=== PATIENT | female | born 1940 | race Caucasian/White ===

== ENCOUNTER → 2018-02-13 13:04 | Outpatient (CLI) | payer OTHER, SELFPAY ==
--- NOTE | 2018-02-13 | DI.MG.S_ITS ---
BILATERAL DIGITAL SCREENING MAMMOGRAM 3D/2D WITH CAD: 02/13/2018 CLINICAL: Routine screening. Personal history of breast cancer. Comparison is made to exams dated: 02/03/2017 mammogram, 02/03/2016 mammogram, and 01/31/2015 mammogram - [facility]. The tissue of both breasts is heterogeneously dense. This may lower the sensitivity of mammography. Current study was also evaluated with a Computer Aided Detection (CAD) system. There are benign post operative findings in the right breast. No significant masses, calcifications, or other findings are seen in either breast. There has been no significant interval change. IMPRESSION: There is no mammographic evidence of malignancy. A 1 year screening mammogram is recommended. This exam was interpreted at Station ID: [id number]. NOTE: For mammograms, a report in lay terms will be sent to the patient. Approximately 15% of breast malignancies will not be visualized mammographically. In the management of a palpable breast mass, a negative mammogram must not discourage biopsy of a clinically suspicious lesion. Electronically Signed By: Melita ferrera/jose:02/13/2018 14:33:53 letter sent: Normal Exam ACR BI-RADS Category 2: Benign Finding(s) 3342F
== END ==
PROVIDERS: PCP Family Medicine; Visit Provider Family Medicine
DX: Z12.31 Encounter for screening mammogram for malignant neoplasm of breast (principal); Z85.3 Personal history of malignant neoplasm of breast
CPT/HCPCS: 77063; 77067

== ENCOUNTER → 2018-05-24 08:11 | Outpatient (CLI) | payer OTHER, SELFPAY ==
--- NOTE | 2018-05-24 08:13 | DI.MRI.S_ITS ---
PROCEDURE: MR SHOULDER LT WO CON INDICATIONS: left shoulder pain TECHNIQUE: Noncontrast oblique coronal T2 fast spin echo with fat saturation, oblique sagittal T1 spin echo and T2 fast spin echo with fat saturation, axial T1 spin echo and T2 fast spin echo with fat saturation through the shoulder. COMPARISON: None. FINDINGS: Image quality: Excellent. Rotator cuff: There is full-thickness rupture of distal supraspinatus at its insertion on greater tuberosity and humeral head with approximately 1.1 cm medial retraction of torn tendon fibers to the level of the acromioclavicular joint and a fluid-filled gap measures up to 1.8 cm in largest AP dimension. Tendinosis and low-grade articular surface partial-thickness tear involving distal infraspinatus at its insertion the humeral head is seen. Tendinosis and low-grade intrasubstance partial thickness tear involving distal subscapularis is noted. Sagittal images demonstrate mild to moderate supraspinatus muscle atrophy. Bones and bursae: No bone marrow contusions or fractures. Moderate acromioclavicular joint osteoarthritis is seen. Mild glenohumeral joint osteoarthritis is also noted. There is a moderate amount of joint effusion or subacromial subdeltoid bursal fluid as well as subcoracoid bursal fluid, no gross loose body. Capsule and soft tissues: In the absence of intra-articular contrast, there is suggestion of superior anterior labral tear at 12 to 1:00 position. The glenohumeral ligaments appear intact. The long head of the biceps tendon demonstrates normal location and morphology. The rotator interval appears normal, without fibrosis. The coracohumeral ligament is normal in thickness. IMPRESSION: 1. Full-thickness rupture of distal supraspinatus at its insertion on greater tuberosity of humeral head with 1.1 cm medial retraction of torn tendon fibers to the level of acromioclavicular joint and fluid-filled gap measures 1.8 cm in largest AP dimension. Tendinosis and low-grade articular surface partial-thickness tear involving distal infraspinatus. Tendinosis and moderately intrasubstance partial-thickness tear involving distal subscapularis. Moderate supraspinatus muscle atrophy. 2. Moderate acromioclavicular joint osteoarthritis and mild glenohumeral joint osteoarthritis. Moderate amount of joint effusion and subacromial subdeltoid bursal fluid. Moderate amount of subcoracoid bursal fluid. 3. Suggestion of superior anterior labral tear at 12 to 1:00 position. Dictated by: Mateo Leahy M.D. on 05/24/2018 at 9:59 Approved by: Mateo Leahy M.D. on 05/24/2018 at 10:13
== END ==
PROVIDERS: PCP Family Medicine; Visit Provider Family Medicine
DX: M25.512 Pain in left shoulder (principal); M75.122 Complete rotator cuff tear or rupture of left shoulder, not specified as traumatic; M19.012 Primary osteoarthritis, left shoulder; M25.412 Effusion, left shoulder
CPT/HCPCS: 73221

== ENCOUNTER 2019-01-03 08:27 | Day surgery (SDC) | payer OTHER, SELFPAY ==
--- NOTE | 2018-12-30 12:35 | PM.PREOP ---
Pre-operative Note Interval Note History & Physical reviewed/Exam performed by Physician: Yes Changes to H&P: No
--- NOTE | 2018-12-30 12:36 | PM.OP.1 ---
Operative Date/Time/Diagnoses Date of procedure: 01/03/19 Time of procedure: 09:45 Procedure & Clinicians Procedure: Preoperative diagnoses: 1. Left nuclear sclerotic and cortical cataract. 2. Status post blepharoplasty both eyes. 3. Hypertension. 4. Strabismus and wears prisms. Postoperative diagnoses: 1. Cataract removed by phacoemulsification with placement of posterior chamber intraocular lens. 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 The patient wants surgery to improve vision. The patient was taken to the operating room and given IV sedation. A retrobulbar block consisting of 6 cc of 2% xylocaine without epinephrine mixed half and half with 0.5% Marcaine with 1 cc of hyaluronidase added is placed between the medial and lateral 1/3 of the inferior orbital rim. The eye is manually massaged for 30 sec, prepped using Betadine solution, and draped in the usual sterile fashion. Temporal approach was made, a 1 mm side-port incision was made 90? from the proposed clear corneal incision position. Phenylephrine 1.5% mixed with 1% xylocaine 0.2 cc was placed into the anterior chamber. Viscoat followed by Cassiaon was then placed. A 2.6 mm clear incision with a 2.6 mm blade was placed. A 360 degree capsulorrhexis style capsulotomy was then performed with a cystitome needle on a Healon. Hydrodelineation and hydrodissection were performed. The phacoemulsification unit is introduced, and sculpting notice used to groove the central lens. It is then removed in chopping mode. Epi nucleus is removed with epinuclear mode and irrigation aspiration was used to remove the peripheral cortex. The posterior capsule is polished. The intraocular lens is selected, inspected, power confirmed, and placed in the posterior chamber. The wound was stromally hydrated and tested for leaks, there was none and it was left sutureless. Vigamox 0.1 cc was placed into the anterior chamber. Kenalog 0.2 cc was placed in the superior subconjunctival space. A drop of antibiotic and was placed and the eye was patched and shielded. The patient was stable and returned to the recovery room in excellent condition. Dictated by: Jackie Olivia MD Copy to: [facility]
[2019-01-03] MEDS: PROPARACAINE 0.5% OPHTH SOL 2 DROPS EYE-OP (08:55)
[2019-01-03 09:00] VITALS: BP 168/90; PULSE 76; RESP 16; TEMP 36.4; O2SAT 100; BMI 22.9
[2019-01-03] MEDS: CATARACT EYE COMPOUND (10 DROPS/SYRINGE) 3 DROPS EYE-OP (09:00)
[2019-01-03] MEDS: LIDOCAINE 2% 4 ML, BUPIVACAINE 0.5% (PF) 4 ML, HYALURONIDASE 150 UNIT INJ (10:02)
[2019-01-03] MEDS: CHONDROIDTIN/SOD HYALURONATE 1.05 ML SYRINGE INTRAOCULA (10:20)
[2019-01-03] MEDS: HYALURONATE SODIUM 10 MG/ML SYRINGE INJ (10:20)
[2019-01-03] MEDS: NEOMYCIN/POLY/DEX OPHTH OINT 1 APPLIC EYE-LEFT (10:22)
[2019-01-03] MEDS: MOXIFLOXACIN INJ 5 MG/ML VIAL EYE-OP (10:22)
[2019-01-03] MEDS: PHENYLEPHRINE/LIDOCAINE VIAL (OR) 0.2 ML EYE-OP (10:23)
[2019-01-03] MEDS: TRIAMCINOLONE 50 MG/5 ML VIAL INJ (10:24)
[2019-01-03] MEDS: BALANCED SALT IRRIG SOLN NO.2 500 ML, EPINEPHrine 1 MG IRR (10:25)
[2019-01-03 10:48] VITALS: BP 151/88; PULSE 69; RESP 15; TEMP 36.6; O2SAT 99
== END 2019-01-03 10:59 | disposition home or self-care (01) ==
LOC: OR 08:29
PROVIDERS: PCP Family Medicine; Visit Provider Ophthalmology
PROC: (CPT 66984; principal; 2019-01-03 09:45)
DX: H25.812 Combined forms of age-related cataract, left eye (principal); I10 Essential (primary) hypertension
CPT/HCPCS: 66984; J0171; J2704; J3301; J3470

== ENCOUNTER 2019-01-10 11:53 | Day surgery (SDC) | payer OTHER, SELFPAY ==
--- NOTE | 2019-01-06 14:01 | PM.PREOP ---
Pre-operative Note Interval Note History & Physical reviewed/Exam performed by Physician: Yes Changes to H&P: No
--- NOTE | 2019-01-06 14:02 | PM.OP.1 ---
Operative Date/Time/Diagnoses Date of procedure: 01/10/19 Time of procedure: 13:15 Procedure & Clinicians Procedure: Preoperative diagnoses: 1. Right nuclear sclerotic and cortical cataract. Postoperative diagnoses: 1. Cataract removed by phacoemulsification with placement of posterior chamber intraocular lens. 2. Previous treatment for breast cancer. 3. Macular drusen. 4. Hypertension 5. Strabismus. Procedure: Phacoemulsification with posterior chamber intraocular lens implant Surgeon: Jackie Olivia MD Complications: None Specimen: None Implant: ZCBOO+19.5 Blood loss: None Anesthesia: Retrobulbar with monitored standby Description of procedure: Patient presents with a complaint of decreased vision due to cataract which is affecting activities of daily living. 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 She also wears prisms for strabismus The patient wants surgery to improve vision. The patient was taken to the operating room and given IV sedation. A retrobulbar block consisting of 6 cc of 2% xylocaine without epinephrine mixed half and half with 0.5% Marcaine with 1 cc of hyaluronidase added is placed between the medial and lateral 1/3 of the inferior orbital rim. The eye is manually massaged for 30 sec, prepped using Betadine solution, and draped in the usual sterile fashion. Temporal approach was made, a 1 mm side-port incision was made 90? from the proposed clear corneal incision position. Phenylephrine 1.5% mixed with 1% xylocaine 0.2 cc was placed into the anterior chamber. Viscoat followed by Healon was then placed. A 2.6 mm clear incision with a 2.6 mm blade was placed. A 360 degree capsulorrhexis style capsulotomy was then performed with a cystitome needle on a Healon. Hydrodelineation and hydrodissection were performed. The phacoemulsification unit is introduced, and sculpting notice used to groove the central lens. It is then removed in chopping mode. Epi nucleus is removed with epinuclear mode and irrigation aspiration was used to remove the peripheral cortex. The posterior capsule is polished. The intraocular lens is selected, inspected, power confirmed, and placed in the posterior chamber. The wound was stromally hydrated and tested for leaks, there was none and it was left sutureless. Vigamox 0.1 cc was placed into the anterior chamber. Kenalog 0.2 cc was placed in the superior subconjunctival space. A drop of antibiotic and was placed and the eye was patched and shielded. The patient was stable and returned to the recovery room in excellent condition. Dictated by: Jackie Olivia MD Copy to: [facility]
[2019-01-10] MEDS: PROPARACAINE 0.5% OPHTH SOL 2 DROPS EYE-OP (12:35)
[2019-01-10 12:38] VITALS: BP 131/82; PULSE 78; RESP 20; TEMP 37; O2SAT 98
[2019-01-10] MEDS: CATARACT EYE COMPOUND (10 DROPS/SYRINGE) 3 DROPS EYE-OP (12:40)
[2019-01-10 12:44] VITALS: BMI 23.3
[2019-01-10] MEDS: PHENYLEPHRINE/LIDOCAINE VIAL (OR) 0.2 ML EYE-OP (14:08)
[2019-01-10] MEDS: LIDOCAINE 2% 4 ML, BUPIVACAINE 0.5% (PF) 4 ML, HYALURONIDASE 150 UNIT INJ (14:09)
[2019-01-10] MEDS: TRIAMCINOLONE 50 MG/5 ML VIAL INJ (14:10)
[2019-01-10] MEDS: MOXIFLOXACIN INJ 5 MG/ML VIAL EYE-OP (14:10)
[2019-01-10] MEDS: CHONDROIDTIN/SOD HYALURONATE 1.05 ML SYRINGE INTRAOCULA (14:10)
[2019-01-10] MEDS: ERYTHROMYCIN OPHTH 1 GM OINT 1 APPLIC EYE-RIGHT (14:11)
[2019-01-10] MEDS: HYALURONATE SODIUM 10 MG/ML SYRINGE INJ (14:11)
[2019-01-10] MEDS: BALANCED SALT IRRIG SOLN NO.2 500 ML, EPINEPHrine 1 MG IRR (14:12)
[2019-01-10 14:35] VITALS: BP 148/95; PULSE 73; RESP 18; TEMP 36.2; O2SAT 100
== END 2019-01-10 15:03 | disposition home or self-care (01) ==
LOC: OR 11:58
PROVIDERS: Family Provider Family Medicine; PCP Family Medicine; Visit Provider Ophthalmology
PROC: (CPT 66984; principal; 2019-01-10 13:15)
DX: H25.811 Combined forms of age-related cataract, right eye (principal); I10 Essential (primary) hypertension; H35.369 Drusen (degenerative) of macula, unspecified eye; H50.9 Unspecified strabismus
CPT/HCPCS: 66984; J0171; J2704; J3301; J3470

== ENCOUNTER → 2019-02-24 10:25 | Outpatient (CLI) | payer OTHER, SELFPAY ==
--- NOTE | 2019-02-24 | DI.MG.S_ITS ---
BILATERAL DIGITAL SCREENING MAMMOGRAM 3D/2D WITH CAD: 02/24/2019 CLINICAL: Routine screening. Personal history of right breast cancer. Comparison is made to exams dated: 02/13/2018 mammogram, 02/03/2017 mammogram, and 02/03/2016 mammogram - [facility]. The tissue of both breasts is heterogeneously dense. This may lower the sensitivity of mammography. Current study was also evaluated with a Computer Aided Detection (CAD) system. There are benign post operative findings in the right breast. No significant masses, calcifications, or other findings are seen in either breast. There has been no significant interval change. IMPRESSION: There is no mammographic evidence of malignancy. A 1 year screening mammogram is recommended. This exam was interpreted at Station ID: [id number]. NOTE: For mammograms, a report in lay terms will be sent to the patient. Approximately 15% of breast malignancies will not be visualized mammographically. In the management of a palpable breast mass, a negative mammogram must not discourage biopsy of a clinically suspicious lesion. Electronically Signed By: Blake bautista/jose:02/26/2019 07:19:01 letter sent: Normal Exam ACR BI-RADS Category 2: Benign Finding(s) 3342F
== END ==
PROVIDERS: PCP Family Medicine; Visit Provider Family Medicine
DX: Z12.31 Encounter for screening mammogram for malignant neoplasm of breast (principal); Z85.3 Personal history of malignant neoplasm of breast
CPT/HCPCS: 77063; 77067

== ENCOUNTER → 2019-04-17 11:28 | Outpatient (CLI) | payer MEDICARE, SELFPAY ==
[2019-04-17 13:02] LABS: Alanine Aminotransferase 17 IU/L (<35); Albumin 4.5 g/dL (3.5-5.0); Albumin Globulin Ratio 1.7 (1.0-2.8); Alkaline Phosphatase 76 U/L (38-126); Aspartate Aminotransferase 28 IU/L (14-36); BUN Creatinine Ratio 26.7 (6-22); Bilirubin Total 1.2 mg/dL (0.2-1.3); Blood Urea Nitrogen 16 mg/dL (7-17); Calcium 9.7 mg/dL (8.4-10.2); Carbon Dioxide 30 mmol/L (22-32); Chloride 93 mmol/L (98-107); Estimated Glomerular Filt Rate > 60.0 mL/min (>60); Globulin 2.6 g/dL (1.7-4.1); Glucose 92 mg/dL (80-110); HEMOLYSIS < 15 (0-50); Potassium 3.4 mmol/L (3.4-5.1); Sodium 133 mmol/L (137-145); Total Protein 7.1 g/dL (6.3-8.2)
[2019-04-17 15:41] LABS: Creatinine Urine Random 81.2 mg/dL
[2019-04-17 15:47] LABS: Microalbumi Creatinin Ratio Ur 13.5 ug/mg CR (<30); Microalbumin Urine Random 1.1 mg/dL (0-1.6)
== END ==
PROVIDERS: PCP Family Medicine; Visit Provider Family Medicine
DX: I10 Essential (primary) hypertension (principal)
CPT/HCPCS: 36415; 80053; 82043; 82570

== ENCOUNTER → 2020-01-16 13:48 | Outpatient (CLI) | payer MEDICARE, SELFPAY ==
[2020-01-16 14:11] LABS: Appearance Urine UA CLEAR; Bilirubin Urine UA NEGATIVE (NEGATIVE); Color Urine UA YELLOW; Glucose Urine UA NEGATIVE (Negative); Ketones Urine UA NEGATIVE (NEGATIVE); Leukocyte Esterase Urine UA TRACE (NEGATIVE); Nitrite Urine UA POSITIVE (Negative); Occult Blood Urine UA 1+ (Negative); Protein Urine UA NEGATIVE (Negative); Specific Gravity Urine UA 1.015 (1.000-1.035); Urobilinogen Urine UA 0.2 E.U./dL (0.2)
[2020-01-16 14:25] LABS: pH Urine UA 6.5 (4.5-8.0)
[2020-01-16 14:26] LABS: Bacteria Urine Many (>30); Culture Indicated Urine Specimen Cultured; RBC Urine 1-5/HPF (0-5/HPF); Squamous Epithelial Cell Urine 0-1 /HPF (0-5/HPF); WBC Urine 0-1/HPF (0-5/HPF)
== END ==
PROVIDERS: PCP Family Medicine; Referring Provider Family Medicine; Visit Provider Family Medicine
DX: R30.0 Dysuria (principal)
CPT/HCPCS: 81003; 81015; 87077; 87086; 87186

== ENCOUNTER → 2020-04-24 08:26 | Outpatient (CLI) | payer MEDICARE, SELFPAY ==
--- NOTE | 2020-04-24 | DI.MG.S_ITS ---
BILATERAL DIGITAL SCREENING MAMMOGRAM 3D/2D WITH CAD POST LUMPECTOMY: 04/24/2020 CLINICAL: Routine screening. Personal history of right breast cancer. Comparison is made to exams dated: 02/24/2019 mammogram, 02/13/2018 mammogram, 02/03/2017 mammogram, and 02/03/2016 mammogram - [facility]. The tissue of both breasts is heterogeneously dense. This may lower the sensitivity of mammography. Current study was also evaluated with a Computer Aided Detection (CAD) system. There are benign post operative findings in the right breast. No significant masses, calcifications, or other findings are seen in either breast. There has been no significant interval change. IMPRESSION: BENIGN There is no mammographic evidence of malignancy. A 1 year screening mammogram is recommended. This exam was interpreted at Station ID: [id number]. NOTE: For mammograms, a report in lay terms will be sent to the patient. Approximately 15% of breast malignancies will not be visualized mammographically. In the management of a palpable breast mass, a negative mammogram must not discourage biopsy of a clinically suspicious lesion. Electronically Signed By: Cammy brooks/jose:04/24/2020 10:30:10 letter sent: Normal Exam ACR BI-RADS Category 2: Benign Finding(s) 3342F
== END ==
PROVIDERS: PCP Family Medicine; Referring Provider Family Medicine; Visit Provider Family Medicine
DX: Z12.31 Encounter for screening mammogram for malignant neoplasm of breast (principal); Z80.3 Family history of malignant neoplasm of breast
CPT/HCPCS: 77063; 77067

== ENCOUNTER → 2020-04-30 12:40 | Outpatient (CLI) | payer MEDICARE, SELFPAY ==
[2020-04-30 13:20] LABS: Alanine Aminotransferase 15 IU/L (<35); Albumin 4.5 g/dL (3.5-5.0); Albumin Globulin Ratio 1.4 (1.0-2.8); Alkaline Phosphatase 88 U/L (38-126); Aspartate Aminotransferase 26 IU/L (14-36); BUN Creatinine Ratio 20.8 (6-22); Bilirubin Total 1.2 mg/dL (0.2-1.3); Blood Urea Nitrogen 11 mg/dL (7-17); Carbon Dioxide 32 mmol/L (22-32); Chloride 94 mmol/L (98-107); Estimated Glomerular Filt Rate > 60.0 mL/min (>60); Globulin 3.2 g/dL (1.7-4.1); Glucose 112 mg/dL (80-110); HEMOLYSIS < 15 (0-50); Potassium 3.5 mmol/L (3.4-5.1); Sodium 132 mmol/L (137-145); Total Protein 7.7 g/dL (6.3-8.2)
[2020-04-30 15:31] LABS: Creatinine Urine Random 57.5 mg/dL
[2020-04-30 15:34] LABS: Microalbumi Creatinin Ratio Ur 15.6 ug/mg CR (<30); Microalbumin Urine Random 0.9 mg/dL (0-1.6)
== END ==
PROVIDERS: PCP Family Medicine; Referring Provider Family Medicine; Visit Provider Family Medicine
DX: I10 Essential (primary) hypertension (principal)
CPT/HCPCS: 36415; 80053; 82043; 82570

== ENCOUNTER → 2020-05-09 10:23 | Outpatient (CLI) | payer MEDICARE, SELFPAY ==
[2020-05-09 15:06] LABS: Sodium Urine Random 57 mmol/L (30-90)
[2020-05-12 12:08] LABS: Osmolality Urine 422 mOsmol/kg (.)
== END ==
PROVIDERS: PCP Family Medicine; Referring Provider Family Medicine; Visit Provider Family Medicine
DX: E87.1 Hypo-osmolality and hyponatremia (principal)
CPT/HCPCS: 83935; 84300

== ENCOUNTER → 2020-05-27 09:41 | Outpatient (CLI) | payer MEDICARE, SELFPAY ==
[2020-05-27 11:00] LABS: BUN Creatinine Ratio 24.1 (6-22); Blood Urea Nitrogen 13 mg/dL (7-17); Calcium 9.7 mg/dL (8.4-10.2); Carbon Dioxide 31 mmol/L (22-32); Chloride 93 mmol/L (98-107); Estimated Glomerular Filt Rate > 60.0 mL/min (>60); Glucose 106 mg/dL (80-110); HEMOLYSIS < 15 (0-50); Potassium 3.4 mmol/L (3.4-5.1); Sodium 131 mmol/L (137-145)
== END ==
PROVIDERS: PCP Family Medicine; Referring Provider Family Medicine; Visit Provider Family Medicine
DX: E87.1 Hypo-osmolality and hyponatremia (principal)
CPT/HCPCS: 36415; 80048

== ENCOUNTER → 2020-06-13 08:53 | Outpatient (CLI) | payer MEDICARE, SELFPAY ==
[2020-06-13 10:40] LABS: BUN Creatinine Ratio 25.5 (6-22); Blood Urea Nitrogen 14 mg/dL (7-17); Calcium 9.5 mg/dL (8.4-10.2); Carbon Dioxide 27 mmol/L (22-32); Chloride 100 mmol/L (98-107); Estimated Glomerular Filt Rate > 60.0 mL/min (>60); Glucose 88 mg/dL (80-110); HEMOLYSIS < 15 (0-50); Potassium 4.4 mmol/L (3.4-5.1); Sodium 133 mmol/L (137-145)
== END ==
PROVIDERS: PCP Family Medicine; Referring Provider Family Medicine; Visit Provider Family Medicine
DX: E87.1 Hypo-osmolality and hyponatremia (principal)
CPT/HCPCS: 36415; 80048

== ENCOUNTER → 2020-09-30 15:36 | Outpatient (CLI) | payer MEDICARE, SELFPAY ==
--- NOTE | 2020-09-30 15:40 | DI.MRI.S_ITS ---
PROCEDURE: MR CERVICAL SPINE WO/W CON INDICATIONS: right hand weakness TECHNIQUE: Noncontrast sagittal T1 spin echo and T2 fast spin echo, sagittal STIR, foraminal oblique sagittal T2 fast spin echo, axial gradient echo or T2 fast spin echo through the cervical spine. After the administration of contrast, axial and sagittal T1 spin echo with fat saturation through the cervical spine. COMPARISON: [facility], MR, MR HEAD/BRAIN WO/W CON, 09/30/2020, 15:48. FINDINGS: Image quality: Excellent. Alignment and curvature: There is trace retrolisthesis of C4 on C5. Marrow: Marrow is normal in overall signal, without suspicious enhancement. Mild reactive endplate changes are present at C5-6, C6-7. Spinal cord: Visualized spinal cord has normal size and signal. No cerebellar tonsillar herniation. No abnormal intramedullary enhancement. Paraspinous soft tissues: No paravertebral masses or suspicious enhancement. Incompletely visualized focus of T2 hyperintensity within the cerebellum. Discs: Moderate to severe desiccation is present throughout the cervical spine most severe at C5-6 through C7-T1. C2-3: No disc bulge, spinal stenosis or foraminal narrowing. C3-4: Mild disc bulge without spinal stenosis. Mild left foraminal narrowing with uncovertebral hypertrophy. C4-5: Minimal disc bulge without spinal stenosis. [id number] bilateral foraminal narrowing with uncovertebral hypertrophy. C5-6: Mild disc bulge without spinal stenosis. Moderate left and [id number] right foraminal narrowing with uncovertebral hypertrophy. C6-7: Mild disc bulge with mild spinal stenosis. Moderate bilateral foraminal narrowing with uncovertebral hypertrophy. C7-T1: No disc bulge, spinal stenosis or foraminal narrowing. IMPRESSION: 1. Multilevel disc bulges. 2. Multilevel foraminal narrowing most notable at C5-6, C6-7 secondary to uncovertebral arthropathy. 3. Incompletely visualized cerebellar focus of T2 hyperintensity. Please see MR brain report of 09/30/2020 for further details. Dictated by: Bertha Hoffman M.D. on 09/30/2020 at 16:51 Approved by: Bertha Hoffman M.D. on 09/30/2020 at 16:54
--- NOTE | 2020-09-30 15:40 | DI.MRI.S_ITS ---
PROCEDURE: MR HEAD/BRAIN WO/W CON INDICATIONS: right hand weakness TECHNIQUE: Noncontrast sagittal and axial FLAIR, axial and coronal T2 fast spin echo, axial VIBE, axial gradient echo, axial diffusion and ADC through the brain. After the administration of contrast, axial and coronal VIBE with fat saturation through the brain. COMPARISON: [facility], MR, BRAIN (IAC) W AND WO CONTRAST, 04/14/2010, 13:41. MR, BRAIN WITHOUT CONTRAST, 05/10/2007, 8:13. FINDINGS: Image quality: Excellent. CSF spaces: Ventricles are normal in size and shape. Basal cisterns are patent. No extra-axial fluid collections. Brain: Within the high left frontal lobe, there is a focus of relative hypointense T1 and isointense FLAIR and hyperintense T2 signal. It is noted that there is a rim of hyperintensity on FLAIR sequence. It measures 1.4 cm AP x 2.1 cm transverse by 1.6 cm craniocaudal. There is no associated midline shift. No enhancement. There is a similar smaller focus within the right cerebellum measuring 0.8 mm AP x 0.6 mm transverse by 0.4 cm craniocaudal. This focus is not as well appreciated on all cap FLAIR sequence. Neither focus demonstrates restricted diffusion. [place] focus was present on prior exam in 2010. [place]-white matter interface appears intact. No suspicious white matter lesions. No abnormal intracranial enhancement. Diffusion weighted images show no acute ischemic insults. Brainstem appears normal. Normal intravascular flow voids are present. Skull and face: Calvarial marrow signal is normal. Orbits appear normal. Sinuses: Sinuses are clear. Minimal scattered areas of fluid are noted within the right mastoid air cells. Recommend correlation potential mastoiditis. IMPRESSION: 1. Interval development of cystic like foci as described above. The lesions could represent foci of remote infection, inflammation or ischemia. However, the hyperintense rim enhancement of the left frontal lesion on FLAIR sequence does raise suspicion of minimal vasogenic edema. Cystic low-grade malignancy cannot be excluded. Interval imaging follow-up in 2-3 months to document stability/evaluate progression or potentially further evaluation with spectroscopy may be obtained. Dictated by: Bertha Hoffman M.D. on 09/30/2020 at 16:41 Approved by: Bertha Hoffman M.D. on 09/30/2020 at 16:49
== END ==
PROVIDERS: PCP Family Medicine; Referring Provider Family Medicine; Visit Provider Family Medicine
DX: R29.898 Other symptoms and signs involving the musculoskeletal system (principal); G93.9 Disorder of brain, unspecified; M50.21 Other cervical disc displacement, high cervical region; M48.02 Spinal stenosis, cervical region
CPT/HCPCS: 70553; 72156; A9579

== ENCOUNTER → 2020-12-23 11:10 | Outpatient (CLI) | payer MEDICARE, SELFPAY ==
--- NOTE | 2020-12-23 11:11 | DI.MRI.S_ITS ---
PROCEDURE: MR HEAD/BRAIN WO/W CON INDICATIONS: right arm weakness, f/u Brain MRI TECHNIQUE: Noncontrast axial T1 spin echo, axial T2 fast spin echo, sagittal and axial FLAIR, coronal T2 fast spin echo, axial gradient echo, axial diffusion and ADC through the brain. After the administration of contrast, axial and coronal T1 spin echo with fat saturation through the brain. COMPARISON: [facility], CT, HEAD WITHOUT CONTRAST, 05/01/2007, 10:08. [facility], MR, BRAIN (IAC) W AND WO CONTRAST, 04/14/2010, 13:41. [facility], MR, MR HEAD/BRAIN WO/W CON, 09/30/2020, 15:48. FINDINGS: Image quality: Excellent. CSF spaces: Basal cisterns are patent. No extra-axial fluid collections. Ventricles are normal in size and shape. Brain: Within the posterior aspect of the left frontal lobe, there is a cystic lesion seen, with mildly irregular margins that measures 2.6 by 2.4 cm in greatest axial dimension, with a craniocaudal extent of 2.6 cm. Within this cyst, there is dependently layering debris seen, as on series 13, image 137. Along the margin of this cyst, there is mildly increased FLAIR signal seen. On postcontrast imaging, no significant enhancement can be seen of this lesion. There is a similar appearing lesion within the right cerebellum that measures 2.1 by 1.7 cm in greatest axial dimension, with a craniocaudal extent of 1.7 cm. There is minimal enhancement seen along the right aspect of this cystic focus. Both of these cysts demonstrate clear interval enlargement compared to the prior MRI. Neither of these cysts can be seen in 2011. No midline shift. No intracranial hemorrhage. There is cerebral volume loss for age. There is periventricular white matter chronic small vessel ischemic change. The brainstem appears normal. Diffusion-weighted images demonstrate no acute ischemic insults. No chronic ischemic insults. Normal intravascular flow voids are present. Skull and face: Calvarial marrow is normal in signal. Orbits appear normal. Sinuses: Sinuses and mastoids appear clear. IMPRESSION: Enlarging cystic lesions seen within the left frontal lobe and the right cerebellum. The left frontal lobe cyst demonstrates minimally increased surrounding FLAIR signal, without significant enhancement. The right cerebellar cyst demonstrates a slight amount of enhancement along 1 aspect this cyst. The clinical significance of these cysts is unclear. The patient has a history of breast cancer, although the appearance is unlikely to be related to metastasis. Please consider cystic neoplasm. Parasitic infection is possible. Abscess is highly unlikely, given the relative lack of edema and enhancement. Neurosurgical consultation is recommended. Dictated by: Thom Wong M.D. on 12/23/2020 at 11:49 Transcribed by: BRYANT on 12/23/2020 at 11:58 Approved by: Thom Wong M.D. on 12/23/2020 at 12:36
== END ==
PROVIDERS: PCP Family Medicine; Referring Provider Family Medicine; Visit Provider Family Medicine
DX: G93.0 Cerebral cysts (principal); R29.898 Other symptoms and signs involving the musculoskeletal system; M21.5 Acquired clawhand, clubhand, clawfoot and clubfoot
CPT/HCPCS: 70553

== ENCOUNTER → 2021-01-26 13:10 | Outpatient (CLI) | payer MEDICARE, SELFPAY ==
--- NOTE | 2021-01-26 | DI.MRI.S_ITS ---
PROCEDURE: MR THORACIC SPINE WO/W CON INDICATIONS: LUNG CANCER TECHNIQUE: Noncontrast sagittal T1 spin echo and T2 fast spin echo, sagittal STIR, axial T1 and T2 fast spin echo through the thoracic spine. After the administration of contrast, axial and sagittal T1 spin echo with fat saturation through the thoracic spine. COMPARISON: [facility], , MR CERVICAL SPINE WO/W CON, 09/30/2020, 16:03. FINDINGS: Image quality: Excellent. Alignment and curvature: The thoracic spine is kyphotic. The T12 vertebral body is slightly retrolisthesis relative to L1. Marrow: Endplate degenerative changes of T12-L1 with endplate edema and disc space narrowing consistent with disc disease. No abnormal marrow signal to suggest metastatic disease or infection. No acute vertebral body compression fractures. Spinal cord: Visualized spinal cord is of normal signal and size, without abnormal enhancement. Paraspinous soft tissues: No paravertebral masses or abnormal enhancement. Miscellaneous: Central canal and foramina appear widely patent at all scanned levels. IMPRESSION: 1. No evidence of metastatic disease to the thoracic spine or spinal cord. 2. Degenerative disc disease of T12-L1. 3. Kyphosis of the thoracic spine. Dictated by: Alfonso Henderson M.D. on 01/26/2021 at 15:21 Approved by: Alfonso Henderson M.D. on 01/26/2021 at 15:29
--- NOTE | 2021-01-26 | DI.MRI.S_ITS ---
PROCEDURE: MR LUMBAR SPINE WO/W CON INDICATIONS: 80-year-old female with low back pain and history of breast cancer TECHNIQUE: Noncontrast sagittal T1 spin echo and T2 fast spin echo, sagittal STIR, axial T1 and T2 fast spin echo through the lumbar spine. In cases with scoliosis, additional coronal T2 fast spin echo may be performed. After the administration of contrast, sagittal and axial T1 spin echo with fat saturation through the lumbar spine. COMPARISON: [facility], MR, MR THORACIC SPINE WO/W CON, 01/26/2021, 13:42. FINDINGS: Image quality: Excellent. Alignment and curvature: There is normal bony alignment. Marrow: Degenerative endplate changes noted at T12-L1. No abnormal enhancement throughout the exam. Spinal cord: Conus medullaris terminates at the L1 level. Visualized spinal cord demonstrates normal signal, without suspicious enhancement. Paraspinous soft tissues: No paravertebral masses or abnormal enhancement. T11-12: Disc space narrowing and circumferential disc bulge results in mild central stenosis without cord effacement. No foraminal stenosis. T12-L1: Disc space narrowing with grade 1 retrolisthesis associated with hypertrophic facet joints present. Mild central and moderate bilateral foraminal stenosis present. L1-L2: Disc height is preserved. Mild circumferential disc bulge without central stenosis. Moderate right and no left foraminal stenosis. L2-L3: Mild disc height loss. There is a circumferential disc bulge with hypertrophic facet joints resulting in moderate central stenosis. Mild bilateral foraminal stenosis. L3-L4: Moderate disc space narrowing and circumferential disc bulge with hypertrophic facet joints results in mild central stenosis. No foraminal stenosis. L4-L5: Circumferential disc bulge with hypertrophic facet joints present without central stenosis. No foraminal stenosis. L5-S1: Mild disc height loss and circumferential disc bulge combines with hypertrophic facet joints resulting in grade 1 anterior spondylolisthesis of L5 over S1. No central stenosis present. Moderate left and no right foraminal stenosis. IMPRESSION: 1. No evidence of fracture or metastatic disease. 2. Multilevel degenerative disc disease and arthropathy results in varying degrees of central and foraminal stenosis including mild central and moderate bilateral T12-L1 foraminal stenosis. Approved by: Manjinder Cuenca M.D. on 01/26/2021 at 14:25
== END ==
PROVIDERS: PCP Family Medicine; Referring Provider Internal Medicine; Visit Provider Internal Medicine
DX: C34.90 Malignant neoplasm of unspecified part of unspecified bronchus or lung (principal); M54.50 Low back pain, unspecified; M48.05 Spinal stenosis, thoracolumbar region; M51.35 Other intervertebral disc degeneration, thoracolumbar region; M51.36 Other intervertebral disc degeneration, lumbar region; M51.37 Other intervertebral disc degeneration, lumbosacral region; M47.816 Spondylosis without myelopathy or radiculopathy, lumbar region; M47.817 Spondylosis without myelopathy or radiculopathy, lumbosacral region; M48.061 Spinal stenosis, lumbar region without neurogenic claudication; M48.07 Spinal stenosis, lumbosacral region; M40.204 Unspecified kyphosis, thoracic region; Z85.3 Personal history of malignant neoplasm of breast
CPT/HCPCS: 72157; 72158